=== PATIENT | female | born 1970 | race Caucasian/White ===

== ENCOUNTER → 2018-11-21 | Outpatient (CLI) | payer OTHER ==
--- NOTE | 2018-11-22 15:42 | RAD ---
DATE: 11/21/2018 EXAM: MAMMO LEONARDO POST, BREAST LEFT HISTORY: Right breast pain. COMPARISON: 12/31/2013, 04/14/2016 mammographic exams This study was interpreted with the benefit of Computerized Aided Detection (CAD). Breast Density: SCATTERED The breast parenchyma shows scattered fibroglandular densities. Breast parenchyma level B. FINDINGS: Biopsy clip marker involves the right upper-outer breast. There are 2 masses identified involving the left breast. One of these is in the middle one third retroareolar region measuring up to 1 cm diameter and alert is at the 9:00 region measuring up to 0.5 cm diameter. No distortion. Ultrasound imaging of the left breast was performed. It was limited to the retroareolar region and the 9:00 region. There is a left breast mass measuring 1.1 cm x 0.7 cm x 0.6 cm tall. It is hypoechoic and well-circumscribed. No flow within it. This appears to have corresponding finding on previous mammographic examinations dated 04/14/2016 and possibly also 12/31/2013. At the 9:00 region, there is a hypoechoic well-circumscribed structure measuring 0.6 cm x 0.7 cm x 0.2 cm tall. This has a corresponding finding on the previous ultrasound examination of the right breast dated 12/31/2013. 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 This appears to have a corresponding finding on previous exams. Six-month follow-up ultrasound is recommended to assess stability. BI-RADS CATEGORY: 3 PROBABLY BENIGN FINDING(S)-SHORT INTERVAL FOLLOW-UP SUGGESTED RECOMMENDED FOLLOW-UP: 6M 6 MONTH FOLLOW-UP PQRS compliance statement: Patient information was entered into a reminder system with a target due date pending follow-up ultrasound exam for the next mammogram. Mammography is a sensitive method for finding small breast cancers, but it does not detect them all and is not a substitute for careful clinical examination. A negative mammogram does not negate a clinically suspicious finding and should not result in delay in biopsying a clinically suspicious abnormality. "Our facility is accredited by the [employer] Mammography [employer]."
== END | disposition home or self-care (01) ==
LOC: MAMMO 13:27
PROVIDERS: ATTEND Family Medicine
DX: N63.22 Unspecified lump in the left breast, upper inner quadrant (principal)
CPT/HCPCS: 76641; 77066; G0279; 77062

== ENCOUNTER → 2019-05-24 | Outpatient (CLI) | payer OTHER ==
--- NOTE | 2019-05-24 18:49 | RAD ---
EXAMINATION: BREAST LEFT, MAMMO LEONARDO DIAG BILAT History: Routine screening. Comparison: 01/03/2014, 04/14/2016, 11/21/2018 mammographic exams. Technique: Bilateral digital diagnostic mammogram views were obtained. CAD was utilized. 3-D tomosynthesis images were acquired. Findings: Breast Tissue Density B : There are scattered areas of fibroglandular density. There are no dominant masses, suspicious microcalcifications, or architectural distortion. Biopsy clip marker involves right upper-outer breast. Limited left breast ultrasound was performed. The left breast 4:00 region 1.5 cm from the nipple, there is a 1.1 cm x 0.5 cm tall by 0.9 cm well-circumscribed hypoechoic structure which has remained stable considering slight differences in measurement technique. At the 9:00 retroareolar region, there is a 0.31 cm x 0.26 cm x 0.15 cm tall heterogeneous echotexture structure. This is slightly decreased compared to the previous exam. IMPRESSION: No mammographic evidence of malignancy. Recommend routine screening. BI-RADS category 1: Negative. The images were reviewed with computer aided detection. Patient information is entered into the reminder system with a target due date for the next screening mammogram. Mammography is the most sensitive method for finding small breast cancers, but it does not detect them all and is not a substitute for careful clinical examination. A negative mammogram does not negate a clinically suspicious finding and should not result in delay in biopsying a clinically suspicious abnormality. "Our facility is accredited by the [employer] Mammography [employer]." Electronically signed by: Milton Rees MD (05/24/2019 6:46 PM) [facility]
== END ==
LOC: MAMMO 13:50
PROVIDERS: ATTEND Family Medicine
DX: Z12.31 Encounter for screening mammogram for malignant neoplasm of breast (principal); N64.4 Mastodynia
CPT/HCPCS: 76641; 77066; G0279; 77062

== ENCOUNTER → 2020-10-14 | Outpatient (CLI) | payer OTHER ==
--- NOTE | 2020-10-14 17:17 | RAD ---
EXAM: Bilateral digital screening mammogram with tomosynthesis. HISTORY: 49-year-old female presents for screening mammography. TECHNIQUE: Full-field digital craniocaudal and mediolateral oblique 2D and 3D tomosynthesis images of both breasts are obtained for evaluation. Computer aided detection was applied. COMPARISON: 05/24/2019 and 11/21/2018 BREAST PARENCHYMAL DENSITY: Level C - Heterogeneously dense. FINDINGS: There is no new suspicious mass, microcalcification or region of architectural distortion. There are stable benign-appearing circumscribed nodules within the left greater than right breast. Th e nearly two-year course of stability an mammographic appearance favors benignity. There is a biopsy clip within the right breast. IMPRESSION: BI-RADS Category 2: Benign finding(s). RECOMMENDATION: Annual mammography is recommended. If your mammogram demonstrates that you have dense breast tissue, which could hide abnormalities, and if you have other risk factors for breast cancer that have been identified, you might benefit from s upplemental screening tests that may be suggested by your ordering physician. Dense breast tissue, i n and of itself, is a relatively common condition. This information is not provided to cause undue c oncern, but rather to raise your awareness and to promote discussion with your physician regarding th e presence of other risk factors, in addition to dense breast tissue. A report of your mammography re sults will be sent to you and your physician. You should contact your physician if you have any ques tions or concerns regarding this report. Mammography is a sensitive method for finding small breast cancers, but it does not detect them all a nd is not a substitute for careful clinical examination. A negative mammogram does not negate a clin ically suspicious finding and should not result in delay in biopsying a clinically suspicious abnorma lity. PQRS compliance statement - Patient information was entered into a reminder system with a target due date for the next mammogram. "Our facility is accredited by the [employer] Mammography Program." Electronically signed by: Carole Lepe MD (10/14/2020 5:14 PM) [id number]
== END ==
LOC: MAMMO 15:42
PROVIDERS: ATTEND Family Medicine
DX: Z12.31 Encounter for screening mammogram for malignant neoplasm of breast (principal)
CPT/HCPCS: 77063; 77067